=== PATIENT | male | born 1955 | race African-American/Black ===

== ENCOUNTER 2022-12-21 03:45 | Emergency (ER) | payer MEDICARE, BC ==
[~2022-12-21] VITALS: Ht 180.3 cm; Wt 81.8 kg
[2022-12-21 03:49] VITALS: BP 131/75
[2022-12-21] MEDS ORDERED: LIDOCAINE 1%/EPI 1:200,000/PF 30 ML VIAL SQ ONE (04:00)
[2022-12-21] MEDS ORDERED: BACITRACIN 0.9 GM PACKET OINTMENT TP ONE (04:00)
[2022-12-21] MEDS ORDERED: PERTUSS(ACELL),DIPH,TET VAC/PF 0.5 ML SYRINGE IM. ONE (04:00)
== END 2022-12-21 05:10 | disposition home or self-care (01) ==
LOC: EMS 03:45
DX: S61.411A Laceration without foreign body of right hand, initial encounter (principal); W25.XXXA Contact with sharp glass, initial encounter; Y93.89 Activity, other specified; Y92.89 Other specified places as the place of occurrence of the external cause; Y99.8 Other external cause status
CPT/HCPCS: 99283; 90715; 90471; 12002; J3490